=== PATIENT | female | born 1950 | race Caucasian/White ===

== ENCOUNTER → 2016-11-11 | Outpatient (CLI) | payer MEDICARE, OTHER ==
--- NOTE | 2016-11-11 12:00 | RAD ---
EXAM DESCRIPTION: Hand,Left 3 Views CLINICAL HISTORY: PAIN COMPARISON: None Available. TECHNIQUE: AP, LATERAL, AND OBLIQUE FINDINGS: Three-view left hand shows no fracture or dislocation. Minimal degenerative changes at the base of the thumb are noted without marked osteopenia or destructive process. Digits appear intact. IMPRESSION: 1. Mild degenerative changes otherwise negative hand Electronically signed by: Alfonso Kelley MD 11/11/2016 11:58 AM CDT
--- NOTE | 2016-11-11 12:01 | RAD ---
EXAM DESCRIPTION: Fingers,Left CLINICAL HISTORY: 66 years Female, PAIN COMPARISON: None. FINDINGS: Three views of the left index finger demonstrate minimal degenerative disease without fracture or dislocation or foreign body involving the base or proximal interphalangeal joint. There is a nondisplaced a small cortical evulsion from the dorsal base of the distal phalanx of the index finger with approximately 1 mm of distraction. Alignment is near-anatomic. IMPRESSION: Small evulsion fracture from the dorsal base of the distal phalanx of the index finger. Electronically signed by: Alfonso Kelley MD 11/11/2016 12:00 PM CDT
== END | disposition home or self-care (01) ==
LOC: RAD 09:22
PROVIDERS: ATTEND Orthopaedic Surgery
DX: M79.642 Pain in left hand (principal); M79.645 Pain in left finger(s)

== ENCOUNTER → 2017-12-02 | Outpatient (CLI) | payer MEDICARE, OTHER ==
--- NOTE | 2017-12-02 10:53 | RAD ---
EXAM DESCRIPTION: Shoulder,Left 2 or More Views CLINICAL HISTORY: 67 years Female, PAIN IN LEFT SHOULDER COMPARISON: None available. FINDINGS: The visualized bones are well-mineralized.No acute fracture or dislocation. The soft tissues appear grossly unremarkable. Moderate acromioclavicular joint osteoarthritis. IMPRESSION: Moderate acromioclavicular joint osteoarthritis. Electronically signed by: Hemant Wong MD 12/02/2017 10:50 AM CDT
--- NOTE | 2017-12-02 21:58 | MRI ---
MRI left shoulder without contrast INDICATION: Shoulder pain rotator cuff tear TECHNIQUE: Noncontrast MR imaging left shoulder FINDINGS: Mild to moderate hypertrophic AC joint osteoarthrosis. Prominent glenohumeral effusion with synovitis. Moderate subacromial and subdeltoid bursitis. Effectively full-thickness non retracted tear distal supraspinatus tendon with background tendinopathy. Mild interstitial partial tear distal infraspinatus. Tendinopathy and moderate chronic partial tear subscapularis. No bicep rupture or dislocation noted. Generalized grade 1-2 fatty marbling of the rotator cuff muscle bellies. Diffuse degenerative fraying and volume loss posterior superior labrum. IMPRESSION: Full-thickness tear distal supraspinatus tendon without marked retraction Generalized mild fatty muscle atrophy Partial thickness tears of the subscapularis and infraspinatus Mild to moderate AC joint osteoarthrosis Prominent subacromial and subdeltoid bursitis and prominent joint fluid tenosynovitis Mild degenerative change glenoid labrum with fraying and volume loss especially posterior superior labrum Electronically signed by: Moustapha Alvarez MD 12/02/2017 9:57 PM CDT
== END ==
LOC: RAD 09:24
PROVIDERS: ATTEND Orthopaedic Surgery
DX: M75.102 Unspecified rotator cuff tear or rupture of left shoulder, not specified as traumatic (principal); M19.012 Primary osteoarthritis, left shoulder

== ENCOUNTER 2018-01-06 06:02 | Day surgery (SDC) | payer MEDICARE, OTHER ==
--- NOTE | 2018-01-02 13:19 | HP ---
CHIEF COMPLAINT: Left shoulder pain. HISTORY OF PRESENT ILLNESS: Anuradha is a 67-year-old female with a history of pain in the left shoulder that has been getting progressively worse over several years. She has had intermittent waxing and waning in intensity, but at this point feels as though it is becoming almost constant. She has had no trauma, no radiation of pain or neurologic symptoms. This bothers her with activities as well as at night. She has had an MRI with evidence of rotator cuff tear. She has requested operative intervention. After discussing the risks, benefits and alternatives to that, the patient has given informed consent. PAST SURGICAL HISTORY: None. MEDICATIONS: 1. Sucralfate. 2. Flonase. 3. Levothyroxine. 4. Lisinopril. 5. Meloxicam. 6. Citalopram. 7. Atorvastatin. 8. Tylenol with codeine. 9. Zolpidem. 10. Ondansetron. 11. Multivitamins. ALLERGIES: NO KNOWN DRUG ALLERGIES. CODE STATUS: DNR. IMMUNIZATIONS: Up to date. FAMILY HISTORY: None pertinent to today's complaint. SOCIAL HISTORY: The patient does not drink, smoke or use any illicit drugs. REVIEW OF SYSTEMS: Negative except as indicated in the History of Present Illness. PHYSICAL EXAMINATION: VITAL SIGNS: Blood pressure 142/76. Pulse 77. Height 5'4". Weight 174 pounds. MENTAL STATUS: The patient is awake, alert, and is able to give a good history and participate in the physical. The patient is oriented to person, place and time. SKIN: Normal tone and turgor. MUSCULOSKELETAL: She has pain with range of motion in the shoulder beyond neutral. She does have actively about 90 degrees of abduction and forward flexion, but refuses to go further than that because of discomfort. She does have intact sensation in the extremity and it is warm and well perfused. She has no deformity. 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 ASSESSMENT: 1. Rotator cuff. PLAN: The plan at this point is rotator cuff repair. We have discussed the risks, benefits, and alternatives to that and the patient has given informed consent. #[id number] [facility]
[2018-01-06] MEDS ORDERED: LACTATED RINGERS 1,000 ML ONE (08:31)
[2018-01-06] MEDS ORDERED: SODIUM CHLORIDE 0.9% 100ML 100 ML IVPB ONE (08:32)
[2018-01-06] MEDS ORDERED: ceFAZolin SODIUM 1 GM VIAL ONE (08:32)
[2018-01-06] MEDS ORDERED: ROCURONIUM BROMIDE 10 MG/ML VIAL ONE (09:59)
[2018-01-06] MEDS ORDERED: fentaNYL CITRATE INJ 50 MCG/ML AMP ONE (09:59)
[2018-01-06] MEDS ORDERED: MIDAZOLAM INJ 2 MG/2 ML VIAL ONE (09:59)
[2018-01-06] MEDS ORDERED: ePHEDrine SULF 50 MG/ML IV ONE (10:00)
[2018-01-06] MEDS ORDERED: BUPIVACAINE 0.5% 30 ML VIAL INJ ONE (10:00)
[2018-01-06] MEDS ORDERED: BUPIVACAINE LIPOSOME 13.3 MG/ML VIAL INJ ONE (10:00)
[2018-01-06] MEDS ORDERED: PROPOFOL 200 MG/20 ML VIAL IV ONE (10:00)
[2018-01-06] MEDS ORDERED: raNITIdine HCL INJ 25 MG/ML VIAL IV ONE (10:00)
[2018-01-06] MEDS ORDERED: LIDOCAINE 1% 10 ML VIAL INJ ONE (10:00)
[2018-01-06] MEDS ORDERED: METOCLOPRAMIDE HCL INJ 10 MG/2 ML VIAL IV ONE (10:00)
[2018-01-06] MEDS ORDERED: DEXAMETHASONE INJ 10 MG/ML VIAL IV ONE (10:00)
[2018-01-06] MEDS ORDERED: VANCOMYCIN HCL INJ 1,000 MG VIAL IVPB ONE (10:44)
[2018-01-06] MEDS ORDERED: ACETAMINOPHEN IV 1000MG 100 ML ONE (10:44)
[2018-01-06] MEDS ORDERED: SODIUM CHLORIDE 0.9% 250ML 250 ML ONE (10:47)
[2018-01-06] MEDS: ceFAZolin SODIUM 1 GM VIAL ONE ×2 (11:15→11:37)
[2018-01-06] MEDS: VANCOMYCIN HCL INJ 1,000 MG VIAL IVPB ONE ×2 (11:15→11:37)
[2018-01-06] MEDS ORDERED: SUGAMMADEX SODIUM 200 MG/2 ML VIAL IV ONE (11:49)
[2018-01-06 12:53] VITALS: BP 138/62; TEMP 98; O2SAT 94
--- NOTE | 2018-01-07 10:49 | OP ---
DATE OF PROCEDURE: 01/06/18 PREOPERATIVE DIAGNOSIS: 1. Left rotator cuff tear. POSTOPERATIVE DIAGNOSIS: 1. Left rotator cuff tear. PROCEDURE: 1. Rotator cuff repair. SURGEON: Esau Montiel MD. LUMBER TAILER: Shilo Bright CST, SA-C. ANESTHESIA: General anesthesia. COMPLICATIONS: None. FINDINGS: Tear measuring approximately 2 cm of the supraspinatus. INDICATION: Ms. Godwin has a history of shoulder pain associated with tear that was identified on MRI. She has failed conservative measures and as such has requested operative intervention. After discussing the risks, benefits and alternatives to operative intervention, informed consent was obtained. PROCEDURE: The patient was brought to the Operating Room and placed in the supine position. General anesthesia was induced and the the patient was transitioned into the beach chair position. The patient's arm and shoulder were then sterilely prepped and draped. Following prepping and draping, an incision was made at the lateral border of the acromion and carried down to the deltoid. The deltoid was split between the anterior and middle heads. Bursectomy was performed and the rotator cuff was identified. There was a tear , as mentioned, in the rotator cuff at the anatomic footprint. The tendon end was debrided and a [employer] construct was used to repair the rotator cuff to an atomic position. The arm was taken through a range of motion and there was no undue tension on the repair and there was no evidence of any other instability of it. The wound was very thoroughly irrigated and the deltoid was reapproximated. The skin was closed with a combination of running and interrupted stitches. Sterile dressing was placed. The patient was placed in a sling. The patient was awoken from anesthesia and taken to Recovery. POSTOPERATIVE INSTRUCTIONS: She will be in her sling, however, we will begin physical therapy for passive range of motion in approximately 7 to 10 days. #[id number] [facility]
== END 2018-01-06 13:40 | disposition home or self-care (01) ==
LOC: AMB 06:02
PROVIDERS: ATTEND Orthopaedic Surgery
DX: M75.102 Unspecified rotator cuff tear or rupture of left shoulder, not specified as traumatic (principal); I10 Essential (primary) hypertension; K21.9 Gastro-esophageal reflux disease without esophagitis; E66.9 Obesity, unspecified; Z87.891 Personal history of nicotine dependence; Z79.899 Other long term (current) drug therapy
CPT/HCPCS: 01610; 23412; J0690; J1100; J2250; J2765; J2780; J3010; J3370; J3490; J7050; J7120

== ENCOUNTER → 2018-05-13 | Outpatient (CLI) | payer MEDICARE, OTHER ==
--- NOTE | 2018-05-14 11:45 | MAM ---
EXAM DESCRIPTION: 3D Screening BILATERAL : Digital Mammography. CLINICAL HISTORY: 67 years Female SCREENING . No complaints. No personal or family history of breast cancer. Childbirth. Postmenopausal 31 years. No HRT. Benign left breast cyst aspiration. Lifetime risk of developing breast cancer (Tyrer-Cuzick model)(%): 6.9 COMPARISON: Baseline study at this facility. No prior reports available. TECHNIQUE: Bilateral CC and MLO projection full-field images, digital tomosynthesis mammographic technique. Bilateral digital 2-D full-field MLO images. CAD not available for tomosynthesis or 2-D images. FINDINGS: The breast parenchymal density pattern is: Scattered areas of fibroglandular density. No skin thickening or nipple retraction. Small right axillary lymph node. Bilateral nodular-type fibroglandular tissues predominantly around the posterior nipple line No focal, stellate mass or density, focal asymmetry , and no suspicious microcalcifications bilaterally. IMPRESSION: Benign exam. BIRAD CATEGORY: 2 BENIGN FINDINGS. RECOMMENDATIONS: FOLLOW UP: Routine digital bilateral mammographic screening, one year interval from May 2018. Written communication explaining the IMPRESSION and follow-up, will be mailed to the patient and referring health care provider. According to the [employer], yearly mammograms are recommended starting at age 40 and continuing as long as a woman is in good health. Any breast change noted on a breast self-exam should be reported promptly to the patient's healthcare provider. Breast MRI is recommended for women with an approximately 20-25% or greater lifetime risk of breast cancer, including women with a strong family history of breast or ovarian cancer and women who have been treated for Hodgkin's disease. A negative mammographic report should not delay tissue diagnosis in patients with significant clinical history or physical findings. Extremely dense breast tissue limits the sensitivity of digital mammography. Electronically signed by: Shilo Mera MD 05/14/2018 11:44 AM NEWSPAPER DELIVERY DRIVER
== END ==
LOC: MAMMO 10:49
PROVIDERS: ATTEND General Practice
DX: Z12.31 Encounter for screening mammogram for malignant neoplasm of breast (principal)

== ENCOUNTER → 2018-10-02 | Outpatient (CLI) | payer MEDICARE, OTHER ==
--- NOTE | 2018-10-02 19:48 | CT ---
EXAM DESCRIPTION: Abdomen/Pelvis w/o Contrast: Computed Tomography. CLINICAL HISTORY: 68 years Female ABD PAIN AND VOMITING COMPARISON: None. TECHNIQUE: Spiral-axial scans 2.5 x 2.5 mm intervals through the abdomen and pelvis without oral or IV contrast. Coronal and sagittal 2.0 mm reconstructions. Total Exam DLP: 774.40 mGy-cm. This exam was performed according to our departmental CT dose-optimization program which includes automated exposure control, adjustment of the mA and/or kV according to patient size and/or use of iterative reconstruction technique; to reduce radiation dose to as low as reasonably achievable (ALARA). FINDINGS: Lung bases and pleura: Pleural parenchymal scarring left lower lobe. Large hiatal hernia inferior mediastinum. Liver, stomach, spleen, and adrenal glands: Long axis of the right hepatic lobe 16 cm. Prominent lateral segment of the left lobe 9 cm. Most of the stomach is herniated but there is no volvulus. Small calcifications in the left adrenal gland. No mass. Small splenules abutting the spleen. Pancreas, Gallbladder, and Ducts: Gallbladder visualized. Minimal dilation of the proximal duct. Pancreas is unremarkable.. Kidneys and Ureters: 2.5 mm radiodense stone in the mid to lower collecting system left kidney. No hydronephrosis bilaterally. No perinephric fluid. Ureters are negative.. Mesentery: Numerous calcifications in the pelvis. No free air or free fluid. No fatty stranding or fascial thickening. Aorta: Moderate atherosclerotic calcification. Small Bowel: Minimal gas in the distal segments without distention. No air-fluid levels. Terminal Ileum/Cecum: Normal caliber and minimal fecal matter. Small mesenteric nodes. Appendix not seen. Colon: Diffuse fecal matter throughout the colon with few diverticula in the sigmoid which is minimally redundant. No air-fluid levels. No complications. Pelvic Organs: Vaginal cuff is somewhat prominent with diffuse calcifications around the vaginal cuff and cul-de-sac anterior to the sigmoid colon. Ovaries not well seen. Spine and Bony Pelvis: Minimal loss of bone density. Minimal spondylosis L5-S1. Thoracolumbar levoscoliosis and lumbosacral dextroscoliosis. Mild hip joint space narrowing bilaterally. Arthrosis in the pubic symphysis. Abdominal Wall/Back Soft Tissues: Bilateral fatty inguinal hernias not containing bowel. Minimal diastases of the umbilicus not containing bowel. IMPRESSION: 1. Large hiatal hernia involving most of the stomach but no evidence of volvulus or obstruction. 2. Minimal enlargement of the lateral segment of the liver but smooth capsule with no ascites. Minimal dilation of the proximal common bile duct but no radiodense stones. Consider right upper quadrant abdominal ultrasound. 3. 2.5 mm nonobstructing radiodense stone in the mid to lower collecting system of the left kidney. 4. Minimal diverticulosis in the distal colon with no complications. Moderate fecal burden throughout the colon. Electronically signed by: Shilo Mera MD 10/02/2018 7:46 PM CDT
== END ==
LOC: CT 09:54
PROVIDERS: ATTEND General Practice
DX: K44.9 Diaphragmatic hernia without obstruction or gangrene (principal); N20.0 Calculus of kidney; K57.30 Diverticulosis of large intestine without perforation or abscess without bleeding; K59.01 Slow transit constipation; R11.10 Vomiting, unspecified